=== PATIENT | female | born 1955 | race Caucasian/White ===

== ENCOUNTER → 2021-04-05 09:38 | Outpatient (BNVA) | payer OTHER, SELFPAY | PROVIDERS: PCP Nurse Practitioner Family; Visit Provider Family Medicine | DX: Z20.828 Contact with and (suspected) exposure to other viral communicable diseases (principal) | CPT/HCPCS: 87635 ==

== ENCOUNTER 2022-03-13 07:15 | Emergency (ER) | payer OTHER, SELFPAY ==
[2022-03-13 07:21] VITALS: BP 156/98; PULSE 85; RESP 16; TEMP 36.5; O2SAT 97; BMI 24.0
--- NOTE | 2022-03-13 07:30 | W.ED.GENADLT ---
HPI - General Adult General: Chief complaint: Weakness Stated complaint: weakness, diarrhea Time Seen by Provider: 03/13/22 07:16 Source: patient Mode of arrival: ambulatory Limitations: no limitations History of Present Illness: 66-year-old female presents emergency room complaining of generalized weakness and diarrhea. She states she has had loose stools since she got braces put on in JulyAugust 2021 but recently they have gotten worse. Overnight she had significantly discolored watery stools she describes a stool as being greenish and yellow but no dark tarry stools no roland red blood she had an episode of vomiting as well. Not had any dysuria urgency or frequency. Interestingly she recently had a number of puppies that she was caring for in her home. No recent oral antibiotic use. Is not had any mucousy diarrhea. She does get some cramping prior to having a bowel movement. Onset (ago): month(s) Location: abdomen Severity: moderate Quality: aching Pain Consistency: intermittent Relieving factors: none Exacerbating factors: none Associated symptoms: Reports decreased appetite, malaise and weakness; Deny chest pain, confusion, cough, diaphoresis, dyspnea, fevers/chills, headache(s), nausea, rash, palpitations, seizures, short of breath, syncope or vomiting Review of Systems Const: Reports: malaise; Denies: diaphoresis ENMT: Denies: throat pain, ear or mastoid pain, nasal discharge or nasal congestion Card: Denies: chest pain, palpitations or syncope Resp: Denies: dyspnea GI: Denies: nausea or vomiting : Denies: flank pain, difficulty voiding, dysuria, urinary frequency or urinary urgency Skin/Breast: Denies: rash Neuro: Denies: headache(s) or confusion PFS ED PFSH: Medical History (Updated 03/13/22 @ 08:39 by Ivan Najera DO) Gastroesophageal reflux disease Hypothyroidism Surgical History (Updated 03/13/22 @ 07:32 by Ivan Najera DO) History of arthroscopy of both knees History of tonsillectomy and adenoidectomy Social History (Updated 03/13/22 @ 07:32 by Ivan Najera DO) Smoking and tobacco status: never smoked Alcohol intake: current Alcohol intake frequency: few times a month Physical Exam Const: COMMON NORMALS: no acute distress GENERAL APPEARANCE: cooperative and comfortable ORIENTATION/CONSCIOUSNESS: Yes awake, Yes oriented to person, Yes oriented to place and Yes oriented to time HENMT: COMMON NORMALS: normocephalic, atraumatic and hearing grossly normal bilaterally HEAD & SCALP: normocephalic and atraumatic Neck/C-Spine: COMMON NORMALS: no JVD Resp: COMMON NORMALS: normal respiratory effort, No retractions, No use of accessory muscles and clear to auscultation bilaterally AUSCULTATION: clear to auscultation bilaterally Cardio: COMMON NORMALS: no JVD, regular rate, regular rhythm and No murmurs present (Cardio) RATE: regular rate RHYTHM: regular rhythm GI: COMMON NORMALS: Soft to palpation and No hepatosplenomegaly present AUSCULTATION: Yes normoactive bowel sounds PALPATION: Yes Soft to palpation, No Tenderness to palpation present (GI), No Guarding due to palpation present (GI) and Yes No hepatosplenomegaly present Extremity: COMMON NORMALS: normal to inspection, capillary refill normal, no clubbing, cyanosis or edema, no calf tenderness and no pedal edema Neuro: SENSORIUM/ORIENTATION: Yes oriented to person, Yes oriented to place and Yes oriented to time Skin: COMMON NORMALS: no rashes or lesions noted GENERAL SKIN EXAM: no rashes or lesions noted Course Vital Signs: Vital signs: Vital Signs Temperature 97.7 F 03/13/22 07:21 Pulse Rate 85 03/13/22 07:21 Respiratory Rate 16 03/13/22 07:21 Blood Pressure 156/98 03/13/22 07:21 Pulse Oximetry 97 03/13/22 07:21 [facility] - General Adult Medical Decision Making No significant findings with laboratory studies. Patient recently had some puppies that she had at home and had given way she did care for them. Wondering if maybe she had picked up something from them we will get a stool sample specially for a long she has had this. Hold off on any treatment await the stool sample result back and follow-up with her scheduled colonoscopy return if has further problems or has hematochezia or melena. Medical Records I reviewed the patient's medical records. Lab Data I reviewed the patient's lab results. : 03/13/22 07:50 03/13/22 07:50 Laboratory Results WBC 6.4 10^3/uL (4.0-10.0) 03/13/22 07:50 RBC 4.41 10^6/uL (4.1-5.3) 03/13/22 07:50 Hgb 14.0 g/dL (11.5-15.3) 03/13/22 07:50 Hct 40.1 % (37.0-47.0) 03/13/22 07:50 MCV 90.9 fl (81-99) 03/13/22 07:50 MCH 31.7 pg (28.0-34.0) 03/13/22 07:50 MCHC 34.9 g/dL (30.0-36.0) 03/13/22 07:50 RDW 12.0 % (12.1-15.1) L 03/13/22 07:50 Plt Count 244 10^3/cmm (130-400) 03/13/22 07:50 MPV 10.1 fL (7.4-10.4) 03/13/22 07:50 Neut % (Auto) 63.1 % 03/13/22 07:50 Lymph % (Auto) 25.9 % 03/13/22 07:50 Emanuel % (Auto) 10.0 % 03/13/22 07:50 Eos % (Auto) 0.5 % 03/13/22 07:50 Baso % (Auto) 0.3 % 03/13/22 07:50 Neut # (Auto) 4.02 10^3/uL (1.8-7.7) 03/13/22 07:50 Lymph # (Auto) 1.7 10^3/uL (0.8-4.8) 03/13/22 07:50 Emanuel # (Auto) 0.6 10^3/uL (0.2-0.9) 03/13/22 07:50 Eos # (Auto) 0.0 10^3/uL (0.0-0.8) 03/13/22 07:50 Baso # (Auto) 0.0 10^3/uL (0.0-0.1) 03/13/22 07:50 Nucleated RBC % (auto) 0 % 03/13/22 07:50 Nucleated RBCs # 0.0 /100WBC 03/13/22 07:50 Sodium 133 mmol/L (136-145) L 03/13/22 07:50 Potassium 3.9 mmol/L (3.5-5.1) 03/13/22 07:50 Chloride 96 mmol/L (98-107) L 03/13/22 07:50 Carbon Dioxide 22 mmol/L (22-29) 03/13/22 07:50 Anion Gap 18.9 (5-19) 03/13/22 07:50 BUN 8 mg/dL (8-23) 03/13/22 07:50 Creatinine 0.6 mg/dL (0.5-0.9) 03/13/22 07:50 GFR Calculation 100.6 mL/min (90-130) 03/13/22 07:50 Glucose 100 mg/dL (65-115) 03/13/22 07:50 Calculated Osmolality 274 mOsm/kg (285-295) L 03/13/22 07:50 Calcium 9.4 mg/dL (8.5-10.5) 03/13/22 07:50 Total Bilirubin 0.7 mg/dL (0.15-1.2) 03/13/22 07:50 AST 24 U/L (0-32) 03/13/22 07:50 ALT 19 U/L (0-33) 03/13/22 07:50 Alkaline Phosphatase 84 IU/L (35-105) 03/13/22 07:50 Creatine Kinase 109 U/L (26-192) 03/13/22 07:50 Total Protein 7.6 g/dL (6.6-8.7) 03/13/22 07:50 Albumin 4.9 g/dL (3.5-5.2) 03/13/22 07:50 Globulin 2.7 g/dL (1.3-4.6) 03/13/22 07:50 Urine Color Yellow (Yellow) 03/13/22 07:50 Urine Appearance Clear (CLEAR) 03/13/22 07:50 Urine pH 6 (5-7) 03/13/22 07:50 Ur Specific Homer 1.010 (1.005-1.030) 03/13/22 07:50 Urine Protein Neg (Negative) 03/13/22 07:50 Urine Glucose (UA) Norm (Normal) 03/13/22 07:50 Urine Ketones Negative (Negative) 03/13/22 07:50 Urine Blood 2+ (Negative) H 03/13/22 07:50 Urine Nitrate Negative (Negative) 03/13/22 07:50 Urine Bilirubin Neg (Negative) 03/13/22 07:50 Urine Urobilinogen Norm mg/dL (Negative) 03/13/22 07:50 Ur Leukocyte Esterase Negative (Negative) 03/13/22 07:50 Urine RBC 0-4 /hpf (0-2) H 03/13/22 07:50 Urine WBC None /hpf (0-5) 03/13/22 07:50 Ur Squamous Epith Cells None /hpf (0-5) 03/13/22 07:50 Amorphous Sediment Not Reportable 03/13/22 07:50 Urine Bacteria None /hpf (NONE) 03/13/22 07:50 Discharge Plan Discharge Patient Disposition: Home Clinical Impression: Diarrhea Prescriptions: New ondansetron HCl 4 mg tablet 4 mg PO Q6H PRN (Reason: nausea and vomiting) Qty: 20 0RF No Action multivitamin Tablet 1 tab PO DAILY 0RF Tylenol Ex Str Rapid Release 500 mg Tablet 1,000 mg PO Q6H PRN (Reason: Pain) 0RF levothyroxine 50 mcg tablet 50 mcg PO QAM 0RF simvastatin 20 mg tablet 20 mg PO QPM 0RF ibuprofen 200 mg Tablet 800 mg PO Q6H PRN (Reason: Pain) 0RF diclofenac sodium 50 mg tablet,delayed release (DR/EC) 50 mg PO BID PRN (Reason: Pain) 0RF metoprolol succinate 25 mg tablet extended release 24 hr 25 mg PO QAM 0RF diazepam 5 mg tablet 5 mg PO DAILY PRN (Reason: Anxiety) 0RF Prilosec OTC 20 mg Tablet,Delayed Release (Dr/Ec) 20 mg PO BEDTIME 0RF hydrochlorothiazide 12.5 mg tablet 12.5 mg PO QAM 0RF Discharge Orders: Discharge ED (Routine); Ordered 03/13/22 Ordered By: Ivan Najera Referrals: [facility], [Staff Physician] - Sanjuana Burton FNP [Primary Care Provider] - Discharge Diet: Clear Liquid Discharge Activity: Increase activity as tolerated Patient Instructions: Opioid Safety Activity Restrictions/Additional Instructions: Follow-up with scheduled colonoscopy as planned. Clear liquid diet for 24 to 48 hours and advance as tolerated. Stool culture should result within 48 hours. Return if you have further problems. Coding Level of Care Code ED Compliance Attorney for Chg Fwd Exam Comprehensive
[2022-03-13] MEDS: sodium chloride 0.9% 1,000 ML 999 ML IV (07:40)
[2022-03-13 07:57] LABS: Basophils % 0.3 %; Eosinophils % 0.5 %; Hematocrit 40.1 % (37.0-47.0); Lymphocytes # 1.7 10^3/uL (0.8-4.8); Lymphocytes % 25.9 %; Mean Corpuscular HGB Conc 34.9 g/dL (30.0-36.0); Mean Corpuscular Hemoglobin 31.7 pg (28.0-34.0); Mean Corpuscular Volume 90.9 fl (81-99); Mean Platelet Volume 10.1 fL (7.4-10.4); Monocytes # 0.6 10^3/uL (0.2-0.9); Neutrophils # 4.02 10^3/uL (1.8-7.7); Neutrophils % 63.1 %; Nucleated Red Blood Cells % 0 %; Platelet Count 244 10^3/cmm (130-400); Red Blood Count 4.41 10^6/uL (4.1-5.3); White Blood Count 6.4 10^3/uL (4.0-10.0)
[2022-03-13 08:14] LABS: Add Urine Microscopic? YES; Alanine Aminotransferase 19 U/L (0-33); Albumin Level 4.9 g/dL (3.5-5.2); Alkaline Phosphatase 84 IU/L (35-105); Anion Gap 18.9 (5-19); Aspartate Amino Transferase 24 U/L (0-32); Bilirubin Urine Neg (Negative); Blood Urea Nitrogen 8 mg/dL (8-23); Blood Urine 2+ (Negative); Calcium 9.4 mg/dL (8.5-10.5); Carbon Dioxide 22 mmol/L (22-29); Chloride 96 mmol/L (98-107); Creatine Phosphokinase 109 U/L (26-192); Globulin 2.7 g/dL (1.3-4.6); Glomerular Filtration Rate 100.6 mL/min (90-130); Glucose 100 mg/dL (65-115); Glucose Urine UA Norm (Normal); Ketones Urine Negative (Negative); Leukocyte Esterase Urine Negative (Negative); Nitrate Urine Negative (Negative); Osmolality Calculated 274 mOsm/kg (285-295); Potassium 3.9 mmol/L (3.5-5.1); Protein Urine Neg (Negative); Sodium 133 mmol/L (136-145); Total Bilirubin 0.7 mg/dL (0.15-1.2); Total Protein 7.6 g/dL (6.6-8.7); Urine Appearance Clear (CLEAR); Urine Color Yellow (Yellow); Urobilinogen Urine Norm (Negative); pH Urine 6 (5-7)
[2022-03-13 08:15] LABS: Add Urine Culture? No; RBC Urine 0-4 /hpf (0-2)
[2022-03-13 09:52] VITALS: BP 130/83; PULSE 78; RESP 16; O2SAT 97
== END 2022-03-13 09:45 | disposition home or self-care (01) ==
PROVIDERS: Emergency Provider Family Medicine; PCP Nurse Practitioner Family
DX: R19.7 Diarrhea, unspecified (principal)
CPT/HCPCS: 80053; 81001; 82550; 85025; 87506; 99283; J7030

== ENCOUNTER 2022-03-14 15:02 | Outpatient (CLI) | payer OTHER, SELFPAY ==
--- NOTE | 2022-03-14 15:17 | MM_ITS ---
WS: [id number] BILATERAL 3D TOMOSYNTHESIS DIGITAL SCREENING MAMMOGRAPHY WITH CAD CLINICAL INFORMATION: SCREENING HISTORY: Screening mammogram. No current complaints. COMPARISON: None. TECHNIQUE: Bilateral CC and MLO views. FINDINGS: The breasts are composed of heterogeneous fibroglandular density tissue, which can limit the detectio n of small underlying mass lesions. Incidental punctate and lucent centered calcifications. No suspic ious mass, asymmetry, calcifications, or architectural distortion. No evidence of malignancy. MM/[place] [id number] IMPRESSION: BI-RADS: 2-Benign FOLLOW UP: 1 Year Follow-up Recommend return to annual screening mammography.
== END 2022-03-14 15:03 | disposition home or self-care (01) ==
LOC: RAD 15:03
PROVIDERS: PCP Nurse Practitioner Family; Visit Provider Nurse Practitioner Family
DX: Z12.31 Encounter for screening mammogram for malignant neoplasm of breast (principal)
CPT/HCPCS: 77063; 77067

== ENCOUNTER 2022-05-16 06:13 | Day surgery (SDC) | payer OTHER, SELFPAY ==
[2022-05-16 06:27] VITALS: BP 152/91; PULSE 73; RESP 18; TEMP 36.4; O2SAT 97
[2022-05-16] MEDS: sodium chloride 0.9% 1,000 ML 30 ML IV (06:44)
--- NOTE | 2022-05-16 08:14 | ANES.PREANE2 ---
Pre-Anesthetic Assessment Height/Weight: Height 1.6 m Weight 63.503 kg Temp Pulse Resp BP Pulse Ox O2 Del Method 97.5 F L 73 18 152/91 97 05/16/22 06:27 05/16/22 06:27 05/16/22 06:27 05/16/22 06:27 05/16/22 06:27 05/16/22 06:27 Preop Diagnosis: Screening Operation Date: 05/16/22 07:30 Proposed Procedures p Colonoscopy poss biopsy poss polyectomy 68017,Z12.11(Not Applicable) - Jaxon Upton MD Was Beta Mark taken within 24 hours: Yes Was Clonidine taken within 24 hours: N/A Last intake: Intake Last Liquid Date 05/15/22 Last Liquid Time 19:00 Last Solid Date 05/14/22 Last Solid Time 19:00 Social Alcohol and No tobacco Exam alert, oriented x 3, clear to auscultation bilaterally and regular rate & rhythm Airway Submandibular: within normal limits Mallampati: Class II Dentition: full Comments: Comments: Braces History/ROS No significant history except as noted and No significant complaints Pulmonary None reported CV/HEM Hypertension None reported Hepatic None reported GI None reported Metabolic None reported Musc/skel None reported Neuropsych None reported Anesthetic Plan ASA status: 2 Anesthesia: MAC Risk of > 500 ml blood loss (7ml/kg in children): No Medications/Allergies Home Medications Medication Instructions Recorded Confirmed Last Taken Type acetaminophen 500 mg tablet 1,000 mg PO Q6H PRN Pain 03/13/22 05/16/22 05/15/22 History diazepam 5 mg tablet 5 mg PO DAILY PRN Anxiety 03/13/22 05/16/22 05/15/22 History diclofenac sodium 50 mg 50 mg PO BID PRN Pain 03/13/22 05/16/22 05/15/22 History tablet,delayed release hydrochlorothiazide 12.5 mg tablet 12.5 mg PO QAM 03/13/22 05/16/22 05/15/22 History ibuprofen 200 mg tablet 800 mg PO Q6H PRN Pain 03/13/22 05/16/22 05/15/22 History levothyroxine 50 mcg tablet 50 mcg PO QAM 03/13/22 05/16/22 05/15/22 History metoprolol succinate 25 mg 25 mg PO QAM 03/13/22 05/16/2205/16/22 History tablet,extended release 24 hr multivitamin 1 tab PO DAILY 03/13/22 05/16/22 05/15/22 History omeprazole magnesium 20 mg 20 mg PO BEDTIME 03/13/22 05/16/22 05/15/22 History tablet,delayed release (Prilosec OTC) ondansetron HCl 4 mg tablet 4 mg PO Q6H PRN nausea and 03/13/22 05/16/22 05/15/22 Rx vomiting #20 tabs simvastatin 20 mg tablet 20 mg PO QPM 03/13/22 05/16/22 05/15/22 History Allergies Allergy/AdvReac Type Severity Reaction Status Date / Time No Known Allergies Allergy Verified 05/16/22 06:49 Current Medications Generic Name Dose Route Start Last Admin Trade Name Freq PRN Reason Stop Dose Admin Sodium Chloride 1,000 mls @ 30 mls/hr 05/16/22 06:30 05/16/22 06:44 Sodium Chloride 0.9% IV 05/17/22 06:29 30 mls/hr .Q24H LUCILLE Administration PFSH Anesthesia Medical History Gastroesophageal reflux disease Hypothyroidism Surgical History History of arthroscopy of both knees History of tonsillectomy and adenoidectomy Social History Smoking and tobacco status: never smoked Alcohol intake: current Alcohol intake frequency: few times a month Data Anesthesia Cardiac Studies: No Data to Display
--- NOTE | 2022-05-16 08:23 | P.HP_ITS ---
Providers/Chief Complaint Admitting Physician: Jaxon Upton Primary Care Provider: ELENA Rich History of Present Illness Chioma West is a 66 year old female presenting for a screening colonoscopy. She had previous screening colonoscopy done 11 years ago. There were no concerns. Review of Systems General: Reports: 10 or more systems reviewed and unremarkable except in HPI and below Const: Denies: fever(s) Card: Denies: chest pain or irregular heart rhythm Resp: Denies: dyspnea Medications/Allergies Home Medications Medication Instructions Recorded Confirmed Last Taken Type acetaminophen 500 mg tablet 1,000 mg PO Q6H PRN Pain 03/13/22 05/16/22 05/15/22 History diazepam 5 mg tablet 5 mg PO DAILY PRN Anxiety 03/13/22 05/16/22 05/15/22 History diclofenac sodium 50 mg 50 mg PO BID PRN Pain 03/13/22 05/16/22 05/15/22 History tablet,delayed release hydrochlorothiazide 12.5 mg tablet 12.5 mg PO QAM 03/13/22 05/16/22 05/15/22 History ibuprofen 200 mg tablet 800 mg PO Q6H PRN Pain 03/13/22 05/16/22 05/15/22 History levothyroxine 50 mcg tablet 50 mcg PO QAM 03/13/22 05/16/22 05/15/22 History metoprolol succinate 25 mg 25 mg PO QAM 03/13/22 05/16/22 05/16/22 History tablet,extended release 24 hr multivitamin 1 tab PO DAILY 03/13/22 05/16/22 05/15/22 History omeprazole magnesium 20 mg 20 mg PO BEDTIME 03/13/22 05/16/22 05/15/22 History tablet,delayed release (Prilosec OTC) ondansetron HCl 4 mg tablet 4 mg PO Q6H PRN nausea and 03/13/22 05/16/22 05/15/22 Rx vomiting #20 tabs simvastatin 20 mg tablet 20 mg PO QPM 03/13/22 05/16/22 05/15/22 History Allergies Allergy/AdvReac Type Severity Reaction Status Date / Time No Known Allergies Allergy Verified 05/16/22 06:49 PFSH PFSH: Medical History Gastroesophageal reflux disease Hypothyroidism Surgical History History of arthroscopy of both knees History of tonsillectomy and adenoidectomy Social History Smoking and tobacco status: never smoked Alcohol intake: current Alcohol intake frequency: few times a month Vital Signs Vitals Signs: Last Vital Signs Temp 97.5 F L 05/16/22 06:27 Pulse 73 05/16/22 06:27 Resp 18 05/16/22 06:27 BP 152/91 05/16/22 06:27 Pulse Ox 97 05/16/22 06:27 O2 Del Method 05/16/22 06:27 Physical Exam Const: COMMON NORMALS: no acute distress and patient oriented x3 GENERAL APPEARANCE: cooperative, comfortable and well developed HENMT: COMMON NORMALS: normocephalic and moist oral mucous membranes HEAD & SCALP: normocephalic Chest: COMMONS NORMALS: normal inspection of the chest Resp: COMMON NORMALS: normal respiratory effort and clear to auscultation bilaterally AUSCULTATION: clear to auscultation bilaterally Cardio: COMMON NORMALS: regular rate, regular rhythm, No gallops present (Cardio), No murmurs present (Cardio) and No rub (Cardio) RATE: regular rate RHYTHM: regular rhythm Extremity: COMMON NORMALS: normal to inspection Neuro: COMMON NORMALS: patient oriented x3 and no focal motor deficits Skin: COMMON NORMALS: no rashes or lesions noted GENERAL SKIN EXAM: no rashes or lesions noted A&P Assessment and plan (1) Colon cancer screening: We discussed the risks of the procedure including the risks of bleeding, infection, and anesthesia. The patient had no further questions and wishes to proceed. Status: Acute Coding Level of Care Code Acute Plastic Surgery Manager for g Fwd Diagnoses Colon cancer screening Z12.11
[2022-05-16 08:58] VITALS: BP 119/89; PULSE 71; RESP 16; O2SAT 99
[2022-05-16 09:09] VITALS: BP 154/85; PULSE 69; RESP 16; O2SAT 95
--- NOTE | 2022-05-16 11:54 | ANE.PACU2 ---
Inpatient post-anesthesia follow up: Airway intact: Yes Vital signs: Temperature 97.5 F Pulse Rate 69 Respiratory Rate 16 Blood Pressure 154/85 Pulse Oximetry 95 Oxygen Delivery Me thod Room Air Oxygen Flow Rate Fraction of Inspir ed Oxygen Hydration adequate: Yes Nausea and vomiting: No Pain level: 1 Mental status: Baseline
== END 2022-05-16 09:23 | disposition home or self-care (01) ==
PROVIDERS: PCP Nurse Practitioner Family; Visit Provider Family Medicine
PROC: 0DJD8ZZ Inspection of Lower Intestinal Tract, Via Natural or Artificial Opening Endoscopic (ICD-10-PCS; CPT 45378; principal; 2022-05-16 07:30)
DX: Z12.11 Encounter for screening for malignant neoplasm of colon (principal); K21.9 Gastro-esophageal reflux disease without esophagitis; E03.9 Hypothyroidism, unspecified; I10 Essential (primary) hypertension
CPT/HCPCS: 12345; 45378; J2704; J7030

== ENCOUNTER 2022-08-06 07:19 | Outpatient (CLI) | payer OTHER, SELFPAY ==
[2022-08-06 07:50] LABS: Basophils % 0.3 %; Eosinophils # 0.1 10^3/uL (0.0-0.8); Eosinophils % 2.2 %; Hematocrit 41.5 % (37.0-47.0); Hemoglobin 13.8 g/dL (11.5-15.3); Lymphocytes # 2.3 10^3/uL (0.8-4.8); Lymphocytes % 34.9 %; Mean Corpuscular HGB Conc 33.3 g/dL (30.0-36.0); Mean Corpuscular Hemoglobin 31.7 pg (28.0-34.0); Mean Corpuscular Volume 95.2 fl (81-99); Mean Platelet Volume 9.7 fL (7.4-10.4); Monocytes # 0.5 10^3/uL (0.2-0.9); Monocytes % 7.6 %; Neutrophils # 3.54 10^3/uL (1.8-7.7); Neutrophils % 54.5 %; Nucleated Red Blood Cells % 0 %; Platelet Count 263 10^3/cmm (130-400); Red Blood Count 4.36 10^6/uL (4.1-5.3); Red Cell Distribution Width 12.4 % (12.1-15.1); White Blood Count 6.5 10^3/uL (4.0-10.0)
[2022-08-06 08:21] LABS: 25 Hydroxy Vitamin D 51 ng/mL (30-100); Alanine Aminotransferase 19 U/L (0-33); Albumin Level 4.5 g/dL (3.5-5.2); Alkaline Phosphatase 73 U/L (35-105); Anion Gap 16.3 (5-19); Aspartate Amino Transferase 23 U/L (0-32); Blood Urea Nitrogen 10 mg/dL (8-23); Calcium 10.1 mg/dL (8.5-10.5); Carbon Dioxide 26 mmol/L (22-29); Chloride 98 mmol/L (98-107); Chol HDL Ratio 3.39 mg/dL (0.0-4.40); Cholesterol 329 mg/dL (0-200); Globulin 2.9 g/dL (1.3-4.6); Glomerular Filtration Rate 100.6 mL/min (90-130); Glucose 97 mg/dL (65-115); HDL Cholesterol 97 mg/dL (60-100); LDL Cholesterol Calculated 202 mg/dL (50-129); LDL HDL Ratio 2.08 RATIO (0.00-3.22); Magnesium 1.8 mg/dL (1.7-2.3); Osmolality Calculated 281 mOsm/kg (285-295); Potassium 4.3 mmol/L (3.5-5.1); Sodium 136 mmol/L (136-145); Thyroid Stimulating Hormone 1.48 uIU/mL (0.27-4.20); Total Bilirubin 0.5 mg/dL (0.15-1.2); Total Protein 7.4 g/dL (6.6-8.7); Triglycerides 149 mg/dL (0-150)
== END 2022-08-06 07:20 | disposition home or self-care (01) ==
PROVIDERS: PCP Nurse Practitioner Family
DX: Z01.89 Encounter for other specified special examinations (principal)
CPT/HCPCS: 80053; 80061; 82306; 83735; 84443; 85025

== ENCOUNTER 2023-09-25 07:09 | Outpatient (CLI) | payer OTHER, MEDICARE, SELFPAY ==
[2023-09-25 07:35] LABS: Basophils % 0.6 %; Eosinophils # 0.1 10^3/uL (0.0-0.8); Eosinophils % 2.1 %; Hematocrit 42.1 % (36-47); Lymphocytes # 2.8 10^3/uL (0.8-4.8); Lymphocytes % 44.6 %; Mean Corpuscular HGB Conc 33.3 g/dL (30-55); Mean Corpuscular Hemoglobin 31.3 pg (27-33); Mean Corpuscular Volume 94.2 fl (85-98); Monocytes # 0.5 10^3/uL (0.2-0.9); Monocytes % 8.5 %; Neutrophils # 2.75 10^3/uL (1.8-7.7); Neutrophils % 43.9 %; Nucleated Red Blood Cells % 0 %; Platelet Count 239 10^3/cmm (157-399); Red Blood Count 4.47 10^6/uL (3.85-5.65); Red Cell Distribution Width 12.1 % (12.1-15.1); White Blood Count 6.26 10^3/uL (3.29-11.43)
[2023-09-25 08:06] LABS: Alanine Aminotransferase 25 U/L (0-33); Albumin Level 4.8 g/dL (3.5-5.2); Alkaline Phosphatase 77 U/L (35-105); Anion Gap 14.3 (5-19); Aspartate Amino Transferase 28 U/L (0-32); Blood Urea Nitrogen 11 mg/dL (8-23); Carbon Dioxide 27 mmol/L (22-29); Chloride 96 mmol/L (98-107); Chol HDL Ratio 3.81 mg/dL (0.0-4.40); Cholesterol 358 mg/dL (0-200); Globulin 2.9 g/dL (1.3-4.6); Glucose 103 mg/dL (65-115); HDL Cholesterol 94 mg/dL (60-100); LDL Cholesterol Calculated 234 mg/dL (50-129); LDL HDL Ratio 2.49 RATIO (0.00-3.22); Osmolality Calculated 276 mOsm/kg (285-295); Potassium 4.3 mmol/L (3.5-5.1); Sodium 133 mmol/L (136-145); Thyroid Stimulating Hormone 1.93 uIU/mL (0.27-4.20); Total Bilirubin 0.4 mg/dL (0.15-1.2); Total Protein 7.7 g/dL (6.6-8.7); Triglycerides 148 mg/dL (0-150)
== END 2023-09-25 07:10 | disposition home or self-care (01) ==
PROVIDERS: PCP Nurse Practitioner Family; Visit Provider Nurse Practitioner Family
DX: Z01.89 Encounter for other specified special examinations (principal)
CPT/HCPCS: 80053; 80061; 84443; 85025

== ENCOUNTER → 2024-11-16 13:50 | Outpatient (BNVA) | payer MEDICARE, OTHER, SELFPAY | PROVIDERS: PCP Nurse Practitioner Family; Visit Provider Nurse Practitioner Family | DX: D22.5 Melanocytic nevi of trunk (principal); L81.4 Other melanin hyperpigmentation; L57.8 Other skin changes due to chronic exposure to nonionizing radiation; L71.8 Other rosacea; L57.0 Actinic keratosis | CPT/HCPCS: 17000; 99213 ==

== ENCOUNTER 2024-11-21 06:57 | Outpatient (CLI) | payer OTHER, SELFPAY ==
[2024-11-21 07:23] LABS: Basophils % 0.4 %; Eosinophils # 0.1 10^3/uL (0.0-0.8); Eosinophils % 1.9 %; Hematocrit 36.8 % (36-47); Lymphocytes # 2.5 10^3/uL (0.8-4.8); Lymphocytes % 47.6 %; Mean Corpuscular HGB Conc 33.4 g/dL (30-55); Mean Corpuscular Hemoglobin 30.9 pg (27-33); Mean Corpuscular Volume 92.5 fl (85-98); Mean Platelet Volume 9.8 fL (7.4-10.4); Monocytes # 0.4 10^3/uL (0.2-0.9); Monocytes % 8.4 %; Neutrophils # 2.17 10^3/uL (1.8-7.7); Neutrophils % 41.3 %; Nucleated Red Blood Cells % 0 %; Platelet Count 237 10^3/cmm (157-399); Red Blood Count 3.98 10^6/uL (3.85-5.65); Red Cell Distribution Width 12.3 % (12.1-15.1); White Blood Count 5.25 10^3/uL (3.29-11.43)
[2024-11-21 07:49] LABS: Alanine Aminotransferase 22 U/L (0-33); Albumin Level 4.3 g/dL (3.5-5.2); Alkaline Phosphatase 114 U/L (35-105); Anion Gap 16.3 (5-19); Aspartate Amino Transferase 25 U/L (0-32); Blood Urea Nitrogen 10 mg/dL (8-23); Calcium 9.5 mg/dL (8.5-10.5); Carbon Dioxide 24 mmol/L (22-29); Chloride 95 mmol/L (98-107); Chol HDL Ratio 3.07 mg/dL (0.0-4.40); Cholesterol 295 mg/dL (0-200); Glomerular Filtration Rate 99.7 mL/min (90-130); Glucose 110 mg/dL (65-115); HDL Cholesterol 96 mg/dL (60-100); LDL Cholesterol Calculated 173 mg/dL (50-129); Osmolality Calculated 272 mOsm/kg (285-295); Potassium 4.3 mmol/L (3.5-5.1); Sodium 131 mmol/L (136-145); Thyroid Stimulating Hormone 2.85 uIU/mL (0.27-4.20); Total Bilirubin 0.3 mg/dL (0.15-1.2); Total Protein 7.3 g/dL (6.6-8.7); Triglycerides 128 mg/dL (0-150)
== END 2024-11-21 06:58 | disposition home or self-care (01) ==
PROVIDERS: PCP Nurse Practitioner Family; Visit Provider Nurse Practitioner Family
DX: E03.8 Other specified hypothyroidism (principal)
CPT/HCPCS: 80053; 80061; 84443; 85025

== ENCOUNTER 2024-11-28 13:41 | Outpatient (CLI) | payer OTHER, SELFPAY ==
--- NOTE | 2024-11-28 | MM_ITS ---
WS: [id number] BILATERAL 3D TOMOSYNTHESIS DIGITAL SCREENING MAMMOGRAPHY WITH CAD CLINICAL INFORMATION: ANNUAL SCREENING HISTORY: Screening mammogram. No current complaints. COMPARISON: 2021 TECHNIQUE: Bilateral CC and MLO views. FINDINGS: The breasts are composed of heterogeneous fibroglandular density tissue, which can limit the detection of small underlying mass lesions. No suspicious mass, asymmetry, calcifications, or architectural distortion. No evidence of malignancy. Lucent centered calcification LEFT breast. MM/MM [facility] tomosynthesis [id number] IMPRESSION: DENSITY: The breasts are heterogeneously dense, which may obscure small masses. BI-RADS: 2 - Benign FOLLOW UP: 1 Year Follow-up Recommend return to annual screening mammography.
== END 2024-11-28 13:42 | disposition home or self-care (01) ==
LOC: RAD 13:42
PROVIDERS: PCP Nurse Practitioner Family; Visit Provider Nurse Practitioner Family
DX: Z12.31 Encounter for screening mammogram for malignant neoplasm of breast (principal); R92.333 Mammographic heterogeneous density, bilateral breasts; R92.1 Mammographic calcification found on diagnostic imaging of breast
CPT/HCPCS: 77063; 77067

== ENCOUNTER → 2025-07-05 09:37 | Outpatient (BNVA) | payer OTHER, SELFPAY | PROVIDERS: PCP Nurse Practitioner Family; Visit Provider Specialist | DX: M17.11 Unilateral primary osteoarthritis, right knee (principal); M70.51 Other bursitis of knee, right knee; M79.671 Pain in right foot | CPT/HCPCS: 73560; 73565; 73630 ==

== ENCOUNTER 2025-08-08 15:36 | Outpatient (CLI) | payer OTHER, SELFPAY | END 2025-08-08 15:37 | disposition home or self-care (01) | LOC: SPT 15:36 | PROVIDERS: PCP Nurse Practitioner Family; Visit Provider Podiatrist Foot & Ankle Surgery | DX: Z46.89 Encounter for fitting and adjustment of other specified devices (principal); M21.40 Flat foot [pes planus] (acquired), unspecified foot; M20.40 Other hammer toe(s) (acquired), unspecified foot | CPT/HCPCS: L3030 ==